=== PATIENT | female | born 1955 | race Caucasian/White ===

== ENCOUNTER → 2016-12-10 | Outpatient (CLI) | payer OTHER ==
[~2016-12-10] MED LIST: AMLO10TA2 PO; ATOR20TA15 PO; CHLOR50 PO; DOCU1CAP39 PO; HYDR12.57 PO; HYDR25TA5 PO; LISI40TA PO; METO100T PO; OXYC1TAB63 PO
--- NOTE | 2016-12-10 16:35 | RADRPT ---
EXAM DATE/TIME: 12/10/2016 12:04 [place] COMPARISON: No previous studies available for comparison. INDICATIONS : Evaluate for pneumonia, pneumothorax, or communicable disease. Pre op chest xray. MEDICAL HISTORY : None. SURGICAL HISTORY : Hysterectomy. ENCOUNTER: Initial ACUITY: 1 day PAIN SCORE: 0/10 LOCATION: Bilateral chest FINDINGS: PA and lateral views of the chest demonstrate the lungs to be symmetrically aerated without evidence of mass, infiltrate or effusion. The cardiomediastinal contours are unremarkable with atheroscleroti c changes and widening of the descending aorta.. Osseous structures are intact. CONCLUSION: Normal examination for a patient of this age. Michael Rooney MD on December 10, 2016 at 16:33 Board Certified Radiologist. This report was verified electronically.
--- NOTE | 2016-12-10 16:38 | EKG ---
Date Performed: 12/10/2016 Time Performed: 11:42:36 PTAGE: 61 years EKG: Sinus rhythm SEPTAL MYOCARDIAL INFARCTION , OF INDETERMINATE AGE ABNORMAL ECG NO PREVIOUS TRACING DOCTOR: Marlyn Maravilla Interpretating Date/Time 12/10/2016 16:36:32
== END ==
LOC: HCAV 11:28
PROVIDERS: ATTEND Family Medicine
DX: Z01.818 Encounter for other preprocedural examination (principal); R94.31 Abnormal electrocardiogram [ECG] [EKG]
CPT/HCPCS: 71020; 93005

== ENCOUNTER → 2017-01-14 | Outpatient (CLI) | payer OTHER ==
[~2017-01-14] MED LIST changes: -HYDR25TA5 PO
[2017-01-14 13:58] LABS: AUTOMATED NEUTROPHIL # 4.4 TH/MM3 (1.8-7.7); BASOPHIL # 0.1 TH/MM3 (0-0.2); BASOPHIL % 1.2 % (0.0-2.0); EOSINOPHIL # 0.1 TH/MM3 (0-0.4); EOSINOPHIL % 1.6 % (0.0-4.0); HEMATOCRIT 39.9 % (35.0-46.0); HEMO FLAGS DIFF FINAL; LYMPH % 26.7 % (9.0-44.0); LYMPHOCYTE # 1.8 TH/MM3 (1.0-4.8); MEAN CORPUSCULAR HEMOGLOBIN 28.6 PG (27.0-34.0); MEAN CORPUSCULAR HGB CONC 32.9 % (32.0-36.0); NEUT % 64.5 % (16.0-70.0); PLATELET COUNT 222 TH/MM3 (150-450); RED BLOOD COUNT 4.58 MIL/MM3 (4.00-5.30); RED CELL DISTRIBUTION WIDTH 13.7 % (11.6-17.2); WHITE BLOOD COUNT 6.8 TH/MM3 (4.0-11.0)
[2017-01-14 14:18] LABS: BLOOD, URINE NEG (NEG); GLUCOSE,URINE NEG (NEG); KETONE, URINE NEG (NEG); MUCUS URINE FEW /lpf (OCC); NITRITE,URINE NEG (NEG); PH, URINE 7.5 (5.0-8.5); SQUAMOUS EPITHELIAL CELL URINE 1 /hpf (0-5); URINE COLOR LIGHT-YELLOW (YELLW/STRAW)
[2017-01-14 14:20] LABS: BICARBONATE 32.4 MEQ/L (21.0-32.0); POTASSIUM 4.6 MEQ/L (3.5-5.1)
== END ==
LOC: CPRE 12:23
PROVIDERS: ATTEND Obstetrics & Gynecology
DX: Z01.812 Encounter for preprocedural laboratory examination (principal); N81.89 Other female genital prolapse
CPT/HCPCS: 36415; 80048; 81001; 85025; 86850; 86900; 86901

== ENCOUNTER 2017-01-15 06:51 | Observation (INO) | payer OTHER ==
[~2017-01-15] VITALS: Ht 167.6 cm; Wt 77.8 kg
[~2017-01-15 06:51] MED LIST changes: -DOCU1CAP39 PO; -OXYC1TAB63 PO
[2017-01-15] MEDS ORDERED: ceFAZolin 2 GM PREMIX 50 ML IV SCH (07:30)
[2017-01-15] MEDS ORDERED: LACTATED RINGER'S 1000 ML IV SCH (07:30)
[2017-01-15] MEDS ORDERED: SODIUM CHLORID 0.9% 500 ML IV SCH (07:30)
[2017-01-15] MEDS ORDERED: METOPROLOL TARTRATE 25 MG TAB PO PRN (07:30)
[2017-01-15] MEDS ORDERED: INSULIN HUMAN REGULAR 1,000 UNITS/10 ML VIAL SQ PRN (07:30)
[2017-01-15] MEDS ORDERED: PROPOFOL 200 MG/20 ML AMP IV ONE (07:33)
[2017-01-15] MEDS ORDERED: ePHEDrine/NS 25 MG/5 ML SYR IV ONE (07:33)
[2017-01-15 07:43] VITALS: BP 127/82; PULSE 51; RESP 16; TEMP 97.6; O2SAT 98
[2017-01-15] MEDS ORDERED: DEXAMETHASONE SOD PHOS 4 MG/ML VIAL ONE (08:37)
[2017-01-15] MEDS ORDERED: MIDAZOLAM HCL 2 MG/2 ML VIAL ONE (08:38)
[2017-01-15] MEDS ORDERED: VASOPRESSIN INJ 20 UNITS/ML VIAL ONE (08:46)
[2017-01-15] MEDS ORDERED: ESTROGENS CONJUGATED VAG CREA 15 APPL/30 GM TUBE ONE (08:46)
[2017-01-15] MEDS ORDERED: LIDOCAINE 1%/EPINEPHrine 1:100,000 SOLN 30 ML VIAL ONE (09:24)
[2017-01-15] MEDS ORDERED: diphenhydrAMINE HCL 50 MG/ML VIAL IV PRN (10:45)
[2017-01-15] MEDS ORDERED: ZOLPIDEM TARTRATE 5 MG TAB PO PRN (10:45)
[2017-01-15] MEDS ORDERED: SODIUM CHLORIDE 0.9% FLUSH 5 ML FLUSH FLUSH PRN (10:45)
[2017-01-15] MEDS ORDERED: NALOXONE HCL 0.4 MG/ML AMP IV PRN (10:45)
[2017-01-15] MEDS ORDERED: fentaNYL CITRATE 250 MCG/5 ML AMP ONE (11:05)
[2017-01-15] MEDS: LACTATED RINGER'S 1000 ML INJ 1,000 ML IV SCH ×2 (11:25→18:58)
[2017-01-15] MEDS ORDERED: HYDROmorphone HCL PCA 6 MG/30 ML IV SCH (13:00)
[2017-01-15] MEDS ORDERED: DOCUSATE SODIUM 100 MG CAP PO SCH (13:00)
[2017-01-15 14:00] VITALS: O2SAT 96
[2017-01-15] MEDS ORDERED: PCA - TOTAL MG DILAUDID DELIVERED PER SHIFT OTHER SCH (14:00)
[2017-01-15 15:00] VITALS: BP 110/62; PULSE 54; RESP 16; TEMP 97.5
[2017-01-15] MEDS: ONDANSETRON HCL 4 MG/2 ML VIAL IVP PRN (15:30)
[2017-01-15 21:00] VITALS: BP 98/53; PULSE 74; RESP 18; TEMP 98.1
[2017-01-15] MEDS ORDERED: SODIUM CHLORIDE 0.9% FLUSH 5 ML FLUSH FLUSH SCH (21:00)
--- NOTE | 2017-01-15 21:21 | MP ---
cc: TACOS DICKERSON DATE OF SURGERY: 01/15/2017 PREOPERATIVE DIAGNOSIS: Pelvic prolapse. POSTOPERATIVE DIAGNOSIS Pelvic prolapse. PROCEDURE Examination under anesthesia, vaginal hysterectomy, anterior repair, posterior repair, perineorrhaphy SURGEON Dr. Dickerson [facility] MANAGER: Tess Du ANESTHESIA General endotracheal anesthesia. FLUIDS: 700 cc crystalloid ESTIMATED BLOOD LOSS 50 cc URINE OUTPUT 350 cc clear yellow at the end of the procedure. FINDINGS Uterus was approximately 10-12 weeks in size with multiple fibroids. A large rectocele, grade 3 was noted and a grade 2 cystocele was noted. Grade 2 to 3 uterine prolapse was noted. DESCRIPTION OF PROCEDURE: The patient was taken to the operating room where general anesthesia was found be adequate. She was then prepped and draped in the normal sterile fashion in the dorsal lithotomy position. A Martinez catheter was inserted into the urinary bladder using sterile technique. A weighted speculum was placed in the vagina. Single-tooth tenaculum applied to the anterior lip of the cervix. Local anesthetic was then infiltrated in the cervicovaginal reflection circumferentially. An incision was made in the cervicovaginal reflection circumferentially with the Bovie. The bladder was then gently dissected off the anterior surface of the cervix and the uterus using the curved Barone scissors. The posterior peritoneum was then entered sharply using curved Barone scissors. The uterosacral ligaments were clamped x2 with Delvis clamps, transected and suture ligated. The uterine arteries, remaining broad ligaments and cardinal ligaments were clamped with Delvis clamps, transected and suture ligated. The uterus was then delivered. The fallopian tubes were tied in the midline. A Arcos culdoplasty was then done with 0 Vicryl through the uterosacral ligaments and posterior peritoneum. The anterior vaginal mucosa was then infiltrated with local anesthetic and a vertical incision was made from the vaginal cuff towards the urethra. The vaginal mucosa was then dissected laterally and from the cystocele defect. Imbricating sutures of 0 Vicryl were then placed to reduce the cystocele defect. A slight amount of excess vaginal mucosa was then trimmed bilaterally and the vaginal mucosa was closed in a running fashion with 0 Vicryl. The vaginal cuff was then closed in a running fashion transversely with 0 Vicryl. The weighted speculum was removed. Allis clamps were placed bilaterally on the perineum vestibule border. An Allis clamp was placed at the apex of the rectocele vaginally. A transverse incision was made across the perineum. Local anesthetic was infiltrated into the posterior vaginal mucosa. A vertical incision was made with the Metzenbaum scissors towards the apex of the rectocele in the vaginal mucosa and the vaginal mucosa was then dissected laterally from the rectocele defect. Imbricating sutures were then placed to reduce the rectocele. A slight amount of vaginal posterior skin was trimmed and the posterior vaginal mucosa was then closed over the posterior repair with a running suture of 0 Vicryl. The perineorrhaphy was then performed as well with 0 Vicryl. Vaginal packing with Premarin cream was then placed. Sponge, lap, needle, instrument counts were correct. The patient was awakened from anesthesia and transferred to recovery room in stable condition. Pathology was uterus and cervix. MD SAHARA Pace/ROSANA /10:58 AM /9:00 PM
[2017-01-16 00:30] VITALS: BP 99/58; PULSE 67; RESP 18; TEMP 98.6
[2017-01-16] MEDS: ONDANSETRON HCL 4 MG/2 ML VIAL IVP PRN (01:00)
[2017-01-16] MEDS: LACTATED RINGER'S 1000 ML INJ 1,000 ML IV SCH (01:01)
[2017-01-16 05:21] LABS: AUTOMATED NEUTROPHIL # 11.3 TH/MM3 (1.8-7.7); BASOPHIL % 0.2 % (0.0-2.0); EOSINOPHIL % 0.1 % (0.0-4.0); HEMATOCRIT 33.3 % (35.0-46.0); HEMO FLAGS DIFF FINAL; LYMPH % 9.8 % (9.0-44.0); LYMPHOCYTE # 1.3 TH/MM3 (1.0-4.8); MEAN CELL VOLUME 86.4 FL (80.0-100.0); MEAN CORPUSCULAR HEMOGLOBIN 29.1 PG (27.0-34.0); MEAN CORPUSCULAR HGB CONC 33.7 % (32.0-36.0); MONO % 7.3 % (0.0-8.0); NEUT % 82.6 % (16.0-70.0); PLATELET COUNT 190 TH/MM3 (150-450); RED BLOOD COUNT 3.86 MIL/MM3 (4.00-5.30); RED CELL DISTRIBUTION WIDTH 13.4 % (11.6-17.2); WHITE BLOOD COUNT 13.7 TH/MM3 (4.0-11.0)
[2017-01-16 05:43] LABS: POTASSIUM 3.9 MEQ/L (3.5-5.1)
[2017-01-16 06:00] VITALS: BP 122/73; PULSE 67; RESP 16; TEMP 98.6
[2017-01-16] MEDS ORDERED: oxyCODONE/ACETAMINOPHEN 5 MG/325 MG TAB PO PRN ×2 (07:00)
[2017-01-16 07:50] VITALS: BP 140/81; PULSE 68; RESP 16; TEMP 98.1
[2017-01-16] MEDS ORDERED: DOCU1CAP39 PO (07:57)
[2017-01-16] MEDS ORDERED: OXYC1TAB63 PO (07:57)
--- NOTE | 2017-01-16 07:57 | HHI.DCPOC ---
Discharge Care Plan Your Health Problems Are: Pelvic pain Report Symptoms to Your Doctor -Temperate above 100.5 degrees -Redness, of incision or excessive or foul smelling drainage -Unusual pain or calf pain -Increased vaginal bleeding -Painful or difficulty urinating -Feelings of extreme sadness or anxiety after 2 weeks Goals to Promote Your Health * To prevent worsening of your condition and complications * To maintain your health at the optimal level Directions to Meet Your Goals Take your medications as prescribed Follow your dietary instruction Follow activity as directed Ensure plenty of rest for recovery Drink fluids for hydration Keep your appointments as scheduled Take your immunizations and boosters as scheduled If your symptoms worsen call your PCP, if no PCP go to Urgent Care Center or Emergency Room Smoking is Dangerous to Your Health. Avoid second hand smoke Call the 24-hour crisis hotline for domestic abuse at Heide Colon MD Jan 16, 2017 07:57
--- NOTE | 2017-01-16 07:59 | HHI.PR ---
Subjective Remarks Doing well, pain is well controlled, eating well. Objective Vital Signs Vital Signs Date Time Temp Pulse Resp B/P Pulse Ox O2 Delivery O2 Flow Rate FiO2 01/16/17 06:00 98.6 67 16 122/73 01/16/17 00:30 98.6 67 18 99/58 01/15/17 21:00 98.1 74 18 98/53 01/15/17 17:30 16 01/15/17 15:00 97.5 54 16 110/62 01/15/17 14:00 97.5 53 16 107/57 96 Nasal Cannula 2 01/15/17 13:00 46 12 108/65 97 01/15/17 12:00 44 12 112/70 95 01/15/17 11:45 47 12 102/66 95 01/15/17 11:30 49 10 109/71 95 01/15/17 11:25 12 01/15/17 11:15 51 12 123/81 96 01/15/17 11:00 60 12 119/78 96 Nasal Cannula 2 01/15/17 10:56 96.5 88 12 122/77 96 Nasal Cannula 2 I/O 01/15/17 01/15/17 01/15/17 01/16/17 01/16/17 01/16/17 07:00 15:00 23:00 07:00 15:00 23:00 Intake Total 700 ml 1740 ml Output Total 560 ml 525 ml 1550 ml Balance 140 ml -525 ml 190 ml Intake Oral 240 ml IV Total 1500 ml Other 700 ml Output Urine Total 510 ml 525 ml 1550 ml Stool Total 0 ml Estimated Blood Loss 50 ml Result Diagram: 01/16/17 0422 01/16/17 0422 Objective Remarks Chest is clear, regular rate and rhythm. Abdomen is soft and non-distended. vaginal packing/craig removed Ext no CCE. A/P Assessment and Plan Post Op Day 1, s/p VAH, AP repair Doing well Home today and return to office in two weeks. Heide Colon MD Jan 16, 2017 07:59
[2017-03-11] MEDS ORDERED: METO100T PO (14:17)
== END 2017-01-16 10:33 | disposition home or self-care (01) ==
LOC: HSDC 06:51 → HSDI 10:49 → H1EA 15:03
PROVIDERS: ADMIT Obstetrics & Gynecology; ATTEND Obstetrics & Gynecology
DX: N81.89 Other female genital prolapse (principal); N81.6 Rectocele; N81.10 Cystocele, unspecified
CPT/HCPCS: 00942; 57260; 58260; 82565; 84132; 85025; 88307; 94150; G0378; J0690; J1100; J1170; J2250; J2405; J3010; J7120; 88305